=== PATIENT | male | born 1995 | race Caucasian/White ===

== ENCOUNTER 2017-04-15 02:07 | Inpatient (IN) | payer BC, OTHER ==
[~2017-04-15] VITALS: Ht 188 cm; Wt 86.2 kg
--- NOTE | 2017-04-15 02:10 | NUR ---
TO BED 12 A 22 YO MALE PT BIB SELF FROM HOME, PT C/O ULQ ABD PAIN X 2 HOURS NO N/V/D, VSS, NONDIAPHORETIC. NAD NOTED. ONGOING VS MONITORING. GOWNED. COMFORT MEASURES RENDERED.
--- NOTE | 2017-04-15 02:12 | NUR ---
STARTED A SALINE LOCK ON THE LAC G18, BLOOD DRAWN AND SENT TO LAB.
[2017-04-15] MEDS ORDERED: ONDANSETRON HCL/PF 4 MG/2 ML VIAL IVP ONE (02:30)
[2017-04-15] MEDS ORDERED: IV NS 0.9% 1,000 ML BAG IV ONE (02:30)
[2017-04-15] MEDS ORDERED: HYDROMORPHONE INJ 2 MG/ML DISP.SYRIN IV ONE (02:30)
[2017-04-15] MEDS ORDERED: HYDROMORPHONE INJ 2 MG/ML DISP.SYRIN ONE ×5 (02:32→08:03)
[2017-04-15] MEDS ORDERED: ONDANSETRON HCL/PF 4 MG/2 ML VIAL ONE ×2 (02:33→05:11)
--- NOTE | 2017-04-15 02:40 | NUR ---
MEDICATED PATIENT ORDERED BY DR PEARSON.
[2017-04-15 02:52] LABS: BASOPHILS % (AUTO) 0.3 % (0.0-2.0); EOSINOPHILS # (AUTO) 0.1 /CMM (0.0-0.7); EOSINOPHILS % (AUTO) 0.4 % (0.0-6.0); HEMATOCRIT 45 % (39-51); HEMOGLOBIN 15.4 g/dL (13.5-17.5); LYMPHOCYTES # (AUTO) 2.8 /CMM (0.8-4.8); LYMPHOCYTES % (AUTO) 15.2 % (20.0-44.0); MEAN CORPUSCULAR HEMOGLOBIN 32 PG (26.0-33.0); MEAN CORPUSCULAR HGB CONC 34 g/dl (31.0-36.0); MEAN CORPUSCULAR VOLUME 93 fL (80-96); MONOCYTES % (AUTO) 5.4 % (2.0-12.0); NEUTROPHILS # (AUTO) 14.3 /CMM (1.8-8.9); NEUTROPHILS % (AUTO) 78.7 % (43.0-81.0); PLATELET COUNT (AUTO) 342 /CMM (150-450); RDW COEFFICIENT OF VARIATION 12.4 (11.5-15.0); RED BLOOD CELL COUNT(AUTO) 4.86 MIL/uL (4.5-6.0); WHITE BLOOD COUNT (AUTO) 18.1 K/uL (4.3-11.0)
[2017-04-15 02:59] LABS: INR 1.03 (0.87-1.13)
--- NOTE | 2017-04-15 03:01 | NUR ---
patient back from ct.
[2017-04-15 03:03] LABS: APPEARANCE,URINE CLEAR (CLEAR); BILIRUBIN,URINE NEGATIVE (NEGATIVE); BLOOD, URINE NEGATIVE Ery/uL (NEGATIVE); COLOR,URINE YELLOW (YELLOW); KETONES,URINE NEGATIVE (NEGATIVE); LEUKOCYTE ESTERASE ,URINE NEGATIVE (NEGATIVE); NITRITE, URINE NEGATIVE (NEGATIVE); PROTEIN,URINE NEGATIVE (NEGATIVE); UGLUCOSE NEGATIVE (NEGATIVE); UROBILINOGEN,URINE 0.2 EU/dL (0.2)
[2017-04-15 03:07] LABS: ALBUMIN 4.5 g/dL (3.4-5.0); BILIRUBIN,DIRECT 0.1 mg/dL (0.0-0.2); BILIRUBIN,TOTAL 0.6 mg/dL (0.2-1.0); CALCIUM, SERUM 8.3 mg/dL (8.5-10.1); CREATININE 1.1 mg/dL (0.6-1.3); TOTAL PROTEIN, SERUM 7.6 g/dL (6.4-8.2)
[2017-04-15] MEDS ORDERED: HYDROMORPHONE 1 MG/1 ML DISP.SYRIN IV ONE ×4 (03:30→08:00)
[2017-04-15] MEDS ORDERED: IV NS 0.9% 250 ML IV ONE ×2 (04:45→09:47)
[2017-04-15] MEDS ORDERED: IOHEXOL-300 100 ML VIAL IV ONE (04:45)
--- NOTE | 2017-04-15 05:14 | NUR ---
MEDICATED PATIENT WITH DILAUDID 1MG AND ZOFRAN 4MG IVP PER DR PEARSON'S VERBAL ORDER FOR LUQ ABDOMINAL SEVERE PAIN AT 04/21.
[2017-04-15] MEDS ORDERED: ONDANSETRON HCL/PF 4 MG/2 ML VIAL IV ONE (06:00)
--- NOTE | 2017-04-15 06:20 | NUR ---
patient back from ct.
--- NOTE | 2017-04-15 07:03 | NUR ---
Dr Rashid at bedside.
[2017-04-15] MEDS ORDERED: IV NS 0.9% 1,000 ML IV ONE (07:10)
--- NOTE | 2017-04-15 07:12 | NUR ---
PANEL ON-CALL PAGED
--- NOTE | 2017-04-15 07:12 | NUR ---
Report given to Nico AMIN for ilia. Patient is aaox4. vss.
--- NOTE | 2017-04-15 07:21 | NUR ---
No blood culture was drawn per Dr Rashid.
[2017-04-15] MEDS ORDERED: PIPERACILLIN /TAZOBACTAM 3.375 G in IV D5W 50 ML IV ONE (07:30)
[2017-04-15] MEDS ORDERED: RANI150T12 PO (08:01)
--- NOTE | 2017-04-15 08:09 | NUR ---
Report given ELOISA Michelle for AJ going to Tele [phone]
[2017-04-15 08:20] VITALS: BP 120/66
--- NOTE | 2017-04-15 08:20 | NUR ---
PT ADMITTED FROM ER IN STABLE CONDITION, NO SOB OR DISTRESS NOTED, WITH MILD ABDOMINAL PAIN NO N/V NOTED, TRANSFERRED TO BED WITH MAX ASSIST, ORIENTED TO ROOM AND CALL LIGHT, WILL MONITOR.
[2017-04-15 08:50] VITALS: BP 120/66
--- NOTE | 2017-04-15 09:00 | NUR ---
DR PERALES AT BEDSIDE.
[2017-04-15] MEDS ORDERED: Z GUARD REMEDY 2 OZ OINT TP PRN (09:30)
[2017-04-15] MEDS ORDERED: MAG HYDROX/AL HYDROX/SIMETH 30 ML UDC PO PRN (09:30)
[2017-04-15] MEDS ORDERED: MORPHINE SULFATE INJ 2 MG/ML DISP.SYRIN IV PRN (09:30)
[2017-04-15] MEDS ORDERED: MAGNESIUM HYDROXIDE 30 ML UDC PO PRN (09:30)
[2017-04-15] MEDS ORDERED: HYDROCODONE/APAP 5/325MG 1 EACH TABLET PO PRN (09:30)
[2017-04-15] MEDS ORDERED: ACETAMINOPHEN 325 MG TABLET PO PRN (09:30)
[2017-04-15 09:35] LABS: BASOPHILS % (AUTO) 0.2 % (0.0-2.0); EOSINOPHILS % (AUTO) 0.1 % (0.0-6.0); HEMATOCRIT 39 % (39-51); HEMOGLOBIN 13.3 g/dL (13.5-17.5); LYMPHOCYTES # (AUTO) 2.3 /CMM (0.8-4.8); LYMPHOCYTES % (AUTO) 16.5 % (20.0-44.0); MEAN CORPUSCULAR HEMOGLOBIN 32 PG (26.0-33.0); MEAN CORPUSCULAR HGB CONC 34 g/dl (31.0-36.0); MEAN CORPUSCULAR VOLUME 95 fL (80-96); MONOCYTES # (AUTO) 1.3 /CMM (0.1-1.30); MONOCYTES % (AUTO) 9.2 % (2.0-12.0); NEUTROPHILS # (AUTO) 10.2 /CMM (1.8-8.9); PLATELET COUNT (AUTO) 288 /CMM (150-450); RDW COEFFICIENT OF VARIATION 12.1 (11.5-15.0); RED BLOOD CELL COUNT(AUTO) 4.13 MIL/uL (4.5-6.0); WHITE BLOOD COUNT (AUTO) 13.8 K/uL (4.3-11.0)
[2017-04-15] MEDS ORDERED: CT SWABBABLE VALVE TRANS SET 1 EA INFUS.SET MC ONE (09:47)
[2017-04-15] MEDS ORDERED: IOHEXOL-350 100 ML VIAL IV ONE (09:47)
--- NOTE | 2017-04-15 09:52 | NUR ---
PT TAKEN TO CTA VIA BED, IN STABLE CONDITION.
[2017-04-15] MEDS: IV 1/2NS 1000 ML 1,000 ML IV PRN (10:22)
[2017-04-15] MEDS: MORPHINE SULFATE INJ 4 MG/ML DISP.SYRIN IV PRN ×3 (10:23→20:11)
--- NOTE | 2017-04-15 10:29 | NUR ---
PT BACK FROM CTA IN STABLE CONDITION, PAIN MEDICATION GIVEN AND IVF CHANGED PER MD'S ORDER, NOT ABLE TO URINATED AT THIS TIME TO COLLECT URINE FOR DRUG SCREENING, WILL FOLLOW UP.
[2017-04-15 12:00] VITALS: BP 128/61
[2017-04-15 16:00] VITALS: BP 124/66
[2017-04-15] MEDS: ONDANSETRON HCL/PF 4 MG/2 ML VIAL IVP PRN (16:10)
--- NOTE | 2017-04-15 16:18 | NUR ---
PT AWAKE, COMPLAINT OF MILD NAUSEA AND SEVERE ABDOMINAL PAIN, DVT PUMP IS ON, HOWEVER PT REQUESTED TO STOP FOR NOW DUE TO INCREASED PAIN AND DISCOMFORT, EDUCATION DONE, WILL MONITOR.
--- NOTE | 2017-04-15 17:45 | NUR ---
PT'S FAMILY AT BEDSIDE.
--- NOTE | 2017-04-15 18:00 | NUR ---
POC REVIVED WITH PT'S MOM PER PT'S VERBAL CONSENT, MOM IS REQUESTING TO TRANSFER PT TO [facility], WILL F/U WITH DR. PERALES AND BONIFACIO.
--- NOTE | 2017-04-15 18:20 | NUR ---
SPOKE WITH DR. PERALES NEW ORDER FOR CBC RECEIVED AND ACCORDING TO H/H LEVEL DR PERALES WILL MAKE DECISION IF CT ABDOMEN NEEDS TO BE DONE TONIGHT.
--- NOTE | 2017-04-15 18:25 | NUR ---
DR PERALES CALLED AND DISCUSSED POC WITH PT'S MOM.
--- NOTE | 2017-04-15 18:30 | NUR ---
SPOKE WITH OBNIFACIO ZEPEDA EMAIL CAMPAIGN MANAGER, AND DISCUSSED PT'S MOM REQUEST TO TRANSFER PT TO OTHER HOSPITAL. ACCORDING TO BONIFACIO TRANSFER CAN NOT HAPPEN TONIGHT HOWEVER SHE WILL SEE PT IN AM OR PT CAN LEAVE HOSPITAL AMA TONIGHT TO GO TO THE HOSPITAL PER HIS CHOICE.
--- NOTE | 2017-04-15 18:45 | NUR ---
PT AND HIS FAMILY WANTS TO STAY TONIGHT AND SEE CM IN AM.
--- NOTE | 2017-04-15 19:15 | NUR ---
PT RESTING IN BED, WITH MILD ABDOMINAL PAIN, NO N/V NOTED, NEW LABS ARE PENDING, REPORT GIVEN TO NIGHT NURSE TO CONTINUE AJ.
[2017-04-15 19:25] LABS: BASOPHILS % (AUTO) 0.2 % (0.0-2.0); EOSINOPHILS # (AUTO) 0.2 /CMM (0.0-0.7); EOSINOPHILS % (AUTO) 1.7 % (0.0-6.0); HEMATOCRIT 38 % (39-51); HEMOGLOBIN 13.1 g/dL (13.5-17.5); LYMPHOCYTES # (AUTO) 2.2 /CMM (0.8-4.8); LYMPHOCYTES % (AUTO) 19.7 % (20.0-44.0); MEAN CORPUSCULAR HEMOGLOBIN 32 PG (26.0-33.0); MEAN CORPUSCULAR HGB CONC 34 g/dl (31.0-36.0); MEAN CORPUSCULAR VOLUME 94 fL (80-96); NEUTROPHILS # (AUTO) 7.6 /CMM (1.8-8.9); NEUTROPHILS % (AUTO) 69.4 % (43.0-81.0); PLATELET COUNT (AUTO) 257 /CMM (150-450); RDW COEFFICIENT OF VARIATION 11.9 (11.5-15.0); RED BLOOD CELL COUNT(AUTO) 4.09 MIL/uL (4.5-6.0); WHITE BLOOD COUNT (AUTO) 10.9 K/uL (4.3-11.0)
--- NOTE | 2017-04-15 19:30 | NUR ---
RN NOTE; RECEIVED PT IN BED AWAKE AND ALERT. BREATHING EVENLY. NO SOB. NAD. SR/SB W/ EPISODES OF ARRHYTHMIA ON TELE MONITOR, STILL W/ ABD PAIN. TO BE MEDICATED . AWAITING FOR NEXT H/H RESULT. ON ONGOING IVF HYDRATION CELY WELL. NEEDS ATTENDED. CALL LIGHT WITHIN REACH.WILL CONT TO MONITOR
[2017-04-15 20:00] VITALS: BP 125/53
[2017-04-15] MEDS: ZOLPIDEM TARTRATE 5 MG TABLET PO PRN (21:15)
--- NOTE | 2017-04-15 21:15 | NUR ---
AMBIEN GIVEN PER PT AND MOTHER'S REQUEST FOR C/O INSOMNIA. PT HAD THE MEDICATION W/ A SMALL SIP OF WATER ONLY.
[2017-04-16] VITALS: BP 133/86
[2017-04-16] MEDS: MORPHINE SULFATE INJ 4 MG/ML DISP.SYRIN IV PRN ×2 (04:45→09:04)
[2017-04-16] MEDS: IV 1/2NS 1000 ML 1,000 ML IV PRN ×2 (04:47→13:32)
[2017-04-16] MEDS: ONDANSETRON HCL/PF 4 MG/2 ML VIAL IVP PRN (04:52)
--- NOTE | 2017-04-16 04:55 | NUR ---
ZOFRAN AND MORPHINE GIVEN PER PT'S REQUEST FOR C/OC SEVERE ABD PAIN AND NAUSEA. WILL CONT TO MONITOR.
--- NOTE | 2017-04-16 06:24 | NUR ---
RN NOTE; PT IN BED AWAKE AND ALERT. MOM AT THE BED SIDE. BREATHING EVENLY. NO SOB. NAD. NO S/S OF ACUTE BLEEDING. NO ACUTE EVENT DURING THE NIGHT. PAIN TOLERATED BY USE OF MORPHINE. NPO W/ OINGOING IVF HYDRATION. NEEDS ATTENDED . CALL LIGHT WITHIN REACH .WILL CONT TO MONITOR AND WILL ENDORSE TO AM SHIFT FOR AJ,
[2017-04-16 07:09] LABS: BASOPHILS % (AUTO) 0.1 % (0.0-2.0); EOSINOPHILS # (AUTO) 0.2 /CMM (0.0-0.7); HEMATOCRIT 38 % (39-51); HEMOGLOBIN 12.9 g/dL (13.5-17.5); LYMPHOCYTES # (AUTO) 1.8 /CMM (0.8-4.8); LYMPHOCYTES % (AUTO) 19.1 % (20.0-44.0); MEAN CORPUSCULAR HEMOGLOBIN 32 PG (26.0-33.0); MEAN CORPUSCULAR HGB CONC 34 g/dl (31.0-36.0); MEAN CORPUSCULAR VOLUME 94 fL (80-96); MONOCYTES % (AUTO) 10.7 % (2.0-12.0); NEUTROPHILS # (AUTO) 6.4 /CMM (1.8-8.9); NEUTROPHILS % (AUTO) 68.1 % (43.0-81.0); PLATELET COUNT (AUTO) 253 /CMM (150-450); RDW COEFFICIENT OF VARIATION 12.1 (11.5-15.0); RED BLOOD CELL COUNT(AUTO) 4.02 MIL/uL (4.5-6.0); WHITE BLOOD COUNT (AUTO) 9.5 K/uL (4.3-11.0)
[2017-04-16 07:25] LABS: ALBUMIN 3.5 g/dL (3.4-5.0); BILIRUBIN,TOTAL 1.1 mg/dL (0.2-1.0); MAGNESIUM 1.8 mg/dL (1.8-2.4); PHOSPHORUS 3.4 mg/dL (2.5-4.9); POTASSIUM 3.9 mmol/L (3.5-5.1); TOTAL PROTEIN, SERUM 6.6 g/dL (6.4-8.2)
--- NOTE | 2017-04-16 07:25 | NUR ---
CARDING MACHINE OPERATOR OPENING NOTE REPORT RECEIVED ON THE PATIENT. PATIENT IS AWAKE, A/O X 4, WITH THE MOTHER AT THE BEDSIDE. EXTERNAL TELE MONITOR ON. SR HR 79. BED IS IN LOWEST POSITION, LOCKED, SIDE RAILS UP X 2. CALL LIGHT WITHIN REACH. ALL NEEDS ARE MET. WILL CONTINUE TO MONITOR.
--- NOTE | 2017-04-16 07:28 | NUR ---
MS RN CLOSING NOTE PATIENT IS RESTING IN BED WITH EYES OPEN. BED IS LOCKED, IN LOWEST POSITION, SIDE RAILS UP X 2. MOTHER AND FATHER AT THE BEDSIDE. PATIENT IS WATCHING TV. CALL LIGHT WITHIN REACH. ALL NEEDS ARE MET. NO S/S OF PAIN/DISTRESS. PATIENT REPORTED ADMINISTERED ANALGESIC BEING EFFECTIVE. VS WNL. PATIENT IS STABLE. WILL ENDORSE TO THE NEXT SHIFT FOR AJ.
[2017-04-16] MEDS: PANTOPRAZOLE 40 MG TABLET.DR PO SCH ×2 (07:30→13:51)
[2017-04-16 08:00] VITALS: BP_SYST 112; BP_DIAS 51; BP_DIAS 61
[2017-04-16] MEDS ORDERED: HYDROMORPHONE 1 MG/1 ML DISP.SYRIN IV PRN (11:00)
[2017-04-16 12:37] LABS: HEMOGLOBIN 13.2 g/dL (13.5-17.5)
[2017-04-16 16:00] VITALS: BP 116/54
--- NOTE | 2017-04-16 19:30 | NUR ---
RN NOTES RECEIVED PT AWAKE, HOB ELEVATED, NO SOB, NOT IN DISTRESS, ON ROOM AIR AND TOLERATED WELL, PARENTS AT BEDSIDE. PT ALERT AND ORIENTED X4, VERBALIZING ABDOMINAL PAIN AT THIS TIME, WILL ADMINISTER PAIN MEDS ORDERED. DENIES NAUSEA AND VOMITING. IV ACCESS ON LEFT AC PATENT AND INTACT WITH ONGOING IVF INFUSING WELL. KEPT COMFORTABLE AND ATTENDED. WILL CONTINUE TO MONITOR PT.
[2017-04-16] MEDS: HYDROMORPHONE INJ 2 MG/ML DISP.SYRIN IV PRN (19:35)
--- NOTE | 2017-04-16 20:00 | NUR ---
RN NOTES PT CLAIMS ABDOMINAL PAIN IMPROVING WITH DILAUDID IV. WILL TAKE SHOWER AT THIS TIME REQUESTED, MD AWARE. DENIES NAUSEA, VOMITING AND DIZZINESS. PT IS AMBULATORY WITH STEADY GAIT. WILL CONTINUE TO MONITOR PT.
[2017-04-16 20:34] VITALS: BP 124/71
[2017-04-16 21:10] LABS: HEMOGLOBIN 12.4 g/dL (13.5-17.5)
[2017-04-16 22:00] VITALS: BP 124/71
[2017-04-16] MEDS: ZOLPIDEM TARTRATE 5 MG TABLET PO PRN (22:25)
--- NOTE | 2017-04-16 22:25 | NUR ---
RN NOTES PT VERBALIZED DIFFICULTY IN SLEEPING, ANBIEN 5 MG TAB GIVEN PO AND TOLERATED WELL. WILL CONTINUE TO MONITOR PT.
--- NOTE | 2017-04-16 23:15 | NUR ---
RN NOTES LATEST HEMOGLOBIN LEVEL 12.4, DR ERWIN MADE AWARE, NO NEW ORDERS MADE. WILL CONTINUE TO MONITOR PT.
[2017-04-17] MEDS: IV 1/2NS 1000 ML 1,000 ML IV PRN ×3 (03:01→17:34)
[2017-04-17 03:42] LABS: HEMOGLOBIN 12.4 g/dL (13.5-17.5)
[2017-04-17] MEDS: HYDROMORPHONE INJ 2 MG/ML DISP.SYRIN IV PRN ×5 (03:42→23:05)
--- NOTE | 2017-04-17 03:42 | NUR ---
RN NOTES PT COMPLAINS OF ABDOMINAL PAIN 04/21, DILAUDID 1MG GIVEN IV , WILL CONTINUE TO MONITOR PT.
--- NOTE | 2017-04-17 07:35 | NUR ---
RN NOTES PT AWAKE, HOB ELEVATED, NO SOB, NOT IN DISTRESS, ON ROOM AIR WITH GOOD SATURATION. VITAL SIGNS STABLE, AFEBRILE. NO EPISODE OF NAUSEA AND VOMITING. KEPT PAIN AT TOLERABLE LEVEL. PT TOLERATED CLEAR LIQUID DIET. ALL NEEDS ATTENDED, MOTHER AT BEDSIDE. AWAITING FOR AUTHORIZATION FROM INSURANCE , PT FOR TRANSFER TO [facility] PER FAMILY REQUEST. ENDORSED TO MORNING RN FOR CONTINUITY OF CARE.
--- NOTE | 2017-04-17 07:45 | NUR ---
RN OPENING NOTES RECEIVED PT. IN BED A&OX4. PT. BREATHING ON ROOM AIR UNLABORED, NO SOB. PT. C/O ABDOMINAL PAIN 6-02/18. PT. WAS OFFERED PAIN MEDICATION. NO S/S OF ACUTE DISTRESS. IV FLUIDS RUNNING AT 75 ML/HR. BED IS IN LOWEST POSITION, 2 SIDE RAILS UP, AND INSTRUCTED PT. TO USE CALL LIGHT FOR ASSISTANCE. WILL CONTINUE TO ASSESS AND MONITOR.
[2017-04-17 08:00] VITALS: BP 105/54
[2017-04-17] MEDS: PANTOPRAZOLE 40 MG TABLET.DR PO SCH (08:18)
[2017-04-17 12:20] LABS: HEMOGLOBIN 12.2 g/dL (13.5-17.5)
--- NOTE | 2017-04-17 12:21 | NUR ---
RN NOTES IV FLUIDS WERE DISCONTINUED PER MD ORDER OKAY TO RESTART SAME IV FLUIDS.
[2017-04-17] MEDS ORDERED: IV 1/2NS 1000 ML 1,000 ML IV ONE (12:30)
[2017-04-17 16:00] VITALS: BP 111/66
--- NOTE | 2017-04-17 19:00 | NUR ---
RN CLOSING NOTES PT. IS IN BED A&OX4. PT. BREATHING ON ROOM AIR UNLABORED, NO SOB. NO S/S OF ACUTE DISTRESS. IV FLUIDS RUNNING AT 75 ML/HR. BED IS IN LOWEST POSITION, 2 SIDE RAILS UP, AND INSTRUCTED PT. TO USE CALL LIGHT FOR ASSISTANCE. PT. IS SCHEDULED FOR A CT OF ABDOMEN AND PELVIS WITH IV AND ORAL CONTRAST, ENDORSED REPORT TO NURSE THAT PT. C/O OF FEELING ANXIOUS BEFORE HAVING HIS BLOOD DRAWN. PT. HAS NOT SIGNED CONSENT FORM, AND IS AWAITING A BED IN [facility].
[2017-04-17 20:00] VITALS: BP 120/56
--- NOTE | 2017-04-17 20:00 | NUR ---
MS/SEED POTATO CUTTER; RECEIVED PT 'S REPORTS FROM THE DAY SHIFT NURSE FOR CONTINUITY OF CARE. AT THIS TIME PT IN BED AWAKE, ALERT AND ORIENTED X 4. PT SAID FELT TERRIBLE AND ANXIOUS. PT SAYING I HAVE BEEN HERE FOR 3 DAYS AND ALSO TALKING ABOUT TO TRANSFER TO [facility]. HE WANTS MED. FOR ANXIETY. NO N/V , NO BM AND HE SAID STILL WITH ABDOMINAL PAIN WITH PAIN LEVEL OF 7 OUT OF 10. HL ON LAC INTACT AND IVF TO RESUME. BREATHING NON LABORED. BED ON LOWER POSITION AND LOCKED FOR SAFETY. UPPER PART OF BED SIDE RAILS ARE UP FOR SAFETY. I TOLD THE PT THAT I WILL PLACE A CALL TO MD FOR ANXIETY MED. PT INSTRUCTED TO CALL FOR HELP AND CALL LIGHT WITHIN REACH.
--- NOTE | 2017-04-17 20:20 | NUR ---
MS/CUSTOMER SUPPORT ADVISOR; PT'S MOTHER PRESENT AT THIS TIME AND SHE TALKED TO THE CHARGE NURSE .
--- NOTE | 2017-04-17 20:25 | NUR ---
MS/BELT KNIFE FEEDER; PLACED A CALL TO DR. ERWIN FOR PT'S REQUEST FOR ANXIETY MED. AWAITING.
--- NOTE | 2017-04-17 20:30 | NUR ---
MS/PROPERTY CLAIMS MANAGER; DR. ERWIN RETURNED HIS CALL. I TOLD HIM THAT PT IS ANXIOUS AND REQUESTING FOR MED. DR. ERWIN ORDERED TO GIVE ATIVAN 1 MG PO X 1. CHARGE NURSE MADE AWARE OF THE ABOVE.
[2017-04-17] MEDS ORDERED: LORAZEPAM 1 MG TABLET PO ONE (21:00)
[2017-04-17 21:36] LABS: HEMOGLOBIN 12.3 g/dL (13.5-17.5)
--- NOTE | 2017-04-17 23:08 | NUR ---
DILAUDID GIVEN ORDERED FOR C/O SEVERE ABD PAIN . WILL CONT TO MONITOR
--- NOTE | 2017-04-17 23:35 | NUR ---
MS/SWIM INSTRUCTOR; PT SLEEPING AT THIS TIME. BREATHING NON LABORED AND EVEN. IVF ON PROGRESS. WILL CONTINUE TO MONITOR.
[2017-04-18] MEDS: HYDROMORPHONE INJ 2 MG/ML DISP.SYRIN IV PRN ×2 (06:17→12:53)
--- NOTE | 2017-04-18 06:23 | NUR ---
DILAUDID GIVEN ORDERED FOR C/O SEVERE ABD PAIN . WILL CONT TO MONITOR
--- NOTE | 2017-04-18 07:00 | NUR ---
MS/ OPERATIONS GENERAL AGENT; SLEPT FAIRLY LAST NIGHT. REMAINED ON NPO. IVF ON PROGRESS. WILL ENDORSE TO THE DAY SHIFT NURSE.
[2017-04-18] MEDS: PANTOPRAZOLE 40 MG TABLET.DR PO SCH (07:30)
--- NOTE | 2017-04-18 07:30 | NUR ---
RN NOTES PT IS IN BED, SLEEPING COMFORTABLY. PT ON RA, NO SOB OR SIGNS OF DISTRESS. IV ON LAC INTACT AND PATENT, RUNNING 1/2 NS AT 75 ML/HR. SAFETY MEASURES ARE IN PLACE. CALL LIGHT IS IN REACH. WILL CONTINUE TO MONITOR.
[2017-04-18 08:00] VITALS: BP 111/46
[2017-04-18] MEDS ORDERED: DIATR MEGLU/DIATRIZOATE SODIUM 30 ML BOTTLE (GASTROGRAPHIN) ONE (08:25)
[2017-04-18] MEDS ORDERED: IOHEXOL-300 100 ML VIAL IV ONE (08:57)
[2017-04-18] MEDS ORDERED: IV NS 0.9% 250 ML IV ONE (08:58)
[2017-04-18] MEDS ORDERED: CT SWABBABLE VALVE TRANS SET 1 EA INFUS.SET MC ONE (08:58)
[2017-04-18 09:54] LABS: BASOPHILS % (AUTO) 0.6 % (0.0-2.0); EOSINOPHILS # (AUTO) 0.2 /CMM (0.0-0.7); EOSINOPHILS % (AUTO) 3.9 % (0.0-6.0); HEMATOCRIT 40 % (39-51); HEMOGLOBIN 13.7 g/dL (13.5-17.5); LYMPHOCYTES # (AUTO) 0.9 /CMM (0.8-4.8); LYMPHOCYTES % (AUTO) 15.3 % (20.0-44.0); MEAN CORPUSCULAR HEMOGLOBIN 33 PG (26.0-33.0); MEAN CORPUSCULAR HGB CONC 35 g/dl (31.0-36.0); MEAN CORPUSCULAR VOLUME 94 fL (80-96); MONOCYTES # (AUTO) 0.6 /CMM (0.1-1.30); MONOCYTES % (AUTO) 10.5 % (2.0-12.0); NEUTROPHILS # (AUTO) 4.1 /CMM (1.8-8.9); NEUTROPHILS % (AUTO) 69.7 % (43.0-81.0); PLATELET COUNT (AUTO) 275 /CMM (150-450); RDW COEFFICIENT OF VARIATION 11.9 (11.5-15.0); RED BLOOD CELL COUNT(AUTO) 4.23 MIL/uL (4.5-6.0); WHITE BLOOD COUNT (AUTO) 5.9 K/uL (4.3-11.0)
[2017-04-18] MEDS: IV 1/2NS 1000 ML 1,000 ML IV PRN (09:57)
[2017-04-18] MEDS ORDERED: LORAZEPAM 0.5 MG TABLET PO PRN (10:00)
--- NOTE | 2017-04-18 13:30 | NUR ---
RN NOTES PT WAS DISCHARGED IN STABLE CONDITION. PT MADE FOLLOW UP APPOINTMENT WITH DR. MEYERS TODAY AT 1500. DISCHARGE INSTRUCTIONS AND EDUCATION WERE GIVEN. DISCHARGE PAPERS AND BELONGINGS LIST WERE SIGNED. COPIES OF IMAGES PER CD WERE PROVIDED. IV AND ID BAND WERE REMOVED. PT LEFT BY PRIVATE CAR WITH MOTHER.
== END 2017-04-18 13:35 | disposition home or self-care (01) | DRG 394 ==
LOC: ER 02:10 → TELE 08:03 → MED 04-16 11:27
PROVIDERS: ADMIT Internal Medicine; ATTEND Internal Medicine
DX: K66.1 Hemoperitoneum (principal); D62 Acute posthemorrhagic anemia; N28.89 Other specified disorders of kidney and ureter; D72.829 Elevated white blood cell count, unspecified; S39.011A Strain of muscle, fascia and tendon of abdomen, initial encounter; Y93.B3 Activity, free weights; Y92.89 Other specified places as the place of occurrence of the external cause
CPT/HCPCS: 36415; 71010-TC; 71250-TC; 71260-TC; 80048-TC; 80053-TC; 80061-TC; 80076-TC; 80305; 81000-TC; 83690-TC; 83735-TC; 84100-TC; 85025-TC; 85027-TC; 85730-TC; 93307-TC; A4606; J1170; J2270; J2405; J2543; J3490; J7030; J7050; J7060; Q9963; Q9967; Z7610